=== PATIENT | female | born 1970 | race Caucasian/White ===

== ENCOUNTER 2018-12-20 11:46 | Emergency (ER) | payer OTHER ==
[~2018-12-20] VITALS: Ht 160 cm; Wt 53.5 kg
[2018-12-20] MEDS ORDERED: TYLENOL WITH CO1 TA1 PO (13:53)
[2018-12-20] MEDS ORDERED: MEDROLDOSEPACK PO (13:53)
[2018-12-20 14:00] VITALS: BP 115/65
== END 2018-12-20 14:04 | disposition home or self-care (01) ==
LOC: M.ERS 11:46
DX: S09.8XXA Other specified injuries of head, initial encounter (principal); M54.5 Low back pain; Z88.0 Allergy status to penicillin; V49.49XA Driver injured in collision with other motor vehicles in traffic accident, initial encounter; Y93.89 Activity, other specified; Y92.89 Other specified places as the place of occurrence of the external cause; Y99.8 Other external cause status